=== PATIENT | female | born 1985 | race Caucasian/White ===

== ENCOUNTER 2021-07-29 18:45 | Observation (INO) | payer SELFPAY ==
[~2021-07-29] VITALS: Ht 154.9 cm; Wt 68.3 kg
[2021-07-29 20:40] LABS: BASO % 0.3 % (0.0-2.0); EOS # 0.1 K/mm3 (0.0-0.7); EOS % 0.5 % (0.0-4.0); GRAN # 11.7 K/mm3 (1.4-6.5); GRAN % 80.9 % (42.2-75.2); HEMATOCRIT 38.4 % (37.0-47.0); HEMOGLOBIN 12.8 g/dl (12.5-16.0); LYMPH # 1.7 K/mm3 (1.2-3.4); LYMPH % 11.9 % (20.0-51.0); MEAN CELL VOLUME 86 fl (80.0-100.0); MEAN CORPUSCULAR HEMOGLOBIN 29 pg (27-31); MEAN CORPUSCULAR HGB CONC 33 g/dl (33.0-37.0); MONO # 0.9 K/mm3 (0.1-0.6); PLATELET COUNT 272 K/mm3 (130-400); RED BLOOD COUNT 4.45 M/mm3 (4.10-5.30); REDCELL DISTRIBUTION WIDTH-CV 12.8 % (11.5-14.5)
[2021-07-29 20:56] LABS: ALBUMIN 4.2 gm/dL (3.5-5.0); BILIRUBIN,TOTAL 0.5 mg/dL (0.2-1.2); CALCIUM 9.2 mg/dL (8.4-10.2); CREATININE, serum 1.19 mg/dL (0.57-1.11); POTASSIUM 4.3 mmol/L (3.5-4.5); TOTAL PROTEIN 7.3 gm/dL (6.2-8.1)
[2021-07-29 21:58] LABS: COLLECTION METHOD CLEAN CATCH
[2021-07-29 22:06] LABS: MUCOUS Present (NOT PRESENT); PH 5 (5-8); URINE APPEARANCE Clear (CLEAR/HAZY); URINE BACTERIA None Seen /hpf (NONE SEEN); URINE BILIRUBIN Negative (NEGATIVE); URINE BLOOD 3+ (NEGATIVE); URINE COLOR Yellow (YELLOW); URINE GLUCOSE Negative (NEGATIVE); URINE KETONE 1+ (NEGATIVE); URINE LEUKOCYTE ESTERASE Negative (NEGATIVE); URINE NITRATE Negative (NEGATIVE); URINE PROTEIN(semi-quant) 1+ (NEGATIVE); URINE RBC >50 /hpf (0-2); URINE UROBILINOGEN Negative (NEGATIVE)
--- NOTE | 2021-07-29 23:57 | NUR ---
To room 349 via wheelchair from ED. Oriented to room and policy. Assessment complete.
[2021-07-30] VITALS (8 sets, daily range): BP systolic 96–117; BP diastolic 49–83; PULSE 57–105; TEMP 97.7–98.2
--- NOTE | 2021-07-30 04:07 | NUR ---
Patient had an uneventful night. Has remained NPO this shift. VS remained stable. Urine has been strained. IV to left AC with NS@125ml/hr. Has not needed nausea/pain meds thus far. Denies current questions/concerns. Call light in reach. Will monitor.
[2021-07-30] MEDS ORDERED: COLACE 100100 MG/CAP PO (09:06)
[2021-07-30] MEDS ORDERED: PYRIDIUM 100MG100 MG PO (09:06)
[2021-07-30] MEDS ORDERED: NORCO 325 MG-51 TAB PO (09:06)
--- NOTE | 2021-07-30 10:33 | NUR ---
SW met with patient to complete intake. Patient states that she lives at home with her three children. Point of contact is [facility] [phone]. Patient states that she does not have anyone appointed as her DPOC-HC. SW provided information in regards to what a DPOA-HC was and patient stated that she would like to review document and think about who to appoint. SW provided DPOA-HC document for patient. Patient states that she does not utilize DME, is independent with ADL's and does not obtain any home health services at this time. Patient states that she does not have a specific PCP, but does know who to reach out to to obtain one to assist her, and pharmacy of choice is [facility]. patient provides that her plan is to return to her home up on DC and she had no questions or concerns. SW will continue to follow. DC plan: home
--- NOTE | 2021-07-30 13:07 | NUR ---
PT MET CRITERIA FOR DISCHARGE, VSS. PAIN CONTROLLED. PT VOIDING AND AMBULATING WITHOUT DIFFICULTY AND IS TOLERATING A REGULAR DIET. IV REMOVED WITHOUT COMPLICAIONS, CATHETER INTACT. DISCHARGE INSTRUCTIONS REVIEWED, PT VERBALIZED UNDERSTANDING. PT AWARE OF F/U APPT TO MAKE AND OF PRESCRIPTIONS TO DIRECTOR OF GLOBAL MARKETING. PT DC VIA AMBULATORY ACCOMPANIED BY THIS NURSE.
== END 2021-07-30 13:09 | disposition home or self-care (01) ==
LOC: COL.ER 18:45 → SURG 22:40
PROVIDERS: Physician Assistant; ADMIT Urology
DX: N13.2 Hydronephrosis with renal and ureteral calculous obstruction (principal)
CPT/HCPCS: C1769; C2617; G0378; J0690; J1100; J1170; J1885; J2270; J2405; J2550; J2704; J3010; J7030; Q9967

== ENCOUNTER 2022-04-30 09:18 | Emergency (ER) | payer BC ==
[~2022-04-30] VITALS: Ht 154.9 cm; Wt 65.5 kg
[~2022-04-30 09:18] MED LIST: AMOXICILLIN875 MG PO; COLACE 100100 MG/CAP PO; FIORICET 325 MG1 TA1 PO; NORCO 325 MG-51 TAB PO; PYRIDIUM 100MG100 MG PO
[2022-04-30 09:24] VITALS: TEMP 98.6
[2022-04-30 10:06] LABS: HEMATOCRIT 39.3 % (37.0-47.0); HEMOGLOBIN 13.4 g/dl (12.5-16.0); MEAN CELL VOLUME 87 fl (80.0-100.0); MEAN CORPUSCULAR HEMOGLOBIN 30 pg (27-31); MEAN CORPUSCULAR HGB CONC 34 g/dl (33.0-37.0); MEAN PLATELET VOLUME 9.9 fl (7.4-10.4); PLATELET COUNT 275 K/mm3 (130-400); RED BLOOD COUNT 4.54 M/mm3 (4.10-5.30); REDCELL DISTRIBUTION WIDTH-CV 12.3 % (11.5-14.5)
[2022-04-30 10:26] LABS: ALBUMIN 3.9 gm/dL (3.5-5.0); BILIRUBIN,TOTAL 0.3 mg/dL (0.2-1.2); CALCIUM 9.3 mg/dL (8.4-10.2); CREATININE, serum 0.88 mg/dL (0.57-1.11); POTASSIUM 4.2 mmol/L (3.5-4.5); TOTAL PROTEIN 7.5 gm/dL (6.2-8.1)
[2022-04-30 10:27] LABS: BAND 2 % (0-10); LYMPHOCYTE 35 % (20.0-51.0); NEUTROPHILS 50 % (42.0-75.2); PLATELET ESTIMATE NORMAL (NORMAL)
[2022-04-30] MEDS ORDERED: BENTYL 20MG20 MG/TAB PO (12:51)
[2022-04-30] MEDS ORDERED: NAPROSYN500 MG PO (12:51)
[2022-04-30] MEDS ORDERED: ZITHROMAX500 M2 PO (12:51)
[2022-04-30 13:00] VITALS: BP 112/67; PULSE 65
== END 2022-04-30 13:00 | disposition home or self-care (01) ==
LOC: COL.ER 09:18
PROVIDERS: Emergency Medicine
DX: K52.9 Noninfective gastroenteritis and colitis, unspecified (principal); A04.5 Campylobacter enteritis; K50.90 Crohn's disease, unspecified, without complications; Z28.310 Unvaccinated for COVID-19
CPT/HCPCS: J1885; J2765; J7120; Q9967

== ENCOUNTER → 2024-04-09 | Outpatient (CLI) | payer BC ==
[~2024-04-09] MED LIST changes: +BENTYL 20MG20 MG/TAB PO; +NAPROSYN500 MG PO; +ZITHROMAX500 M2 PO
== END ==
LOC: MC.RAD 10:00
DX: Z12.31 Encounter for screening mammogram for malignant neoplasm of breast (principal)